=== PATIENT | male | born 2000 | race Caucasian/White ===

== ENCOUNTER 2019-05-03 09:48 | Emergency (ER) | payer OTHER ==
[~2019-05-03] VITALS: Ht 170.2 cm; Wt 67.9 kg
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
[2019-05-03 11:39] VITALS: BP 117/67
[2019-05-03] MEDS ORDERED: ACETAMINOPHEN 325 MG TAB PO ONE (11:45)
== END 2019-05-03 11:42 | disposition home or self-care (01) ==
LOC: M ED 09:48
DX: S00.33XA Contusion of nose, initial encounter (principal); Y92.9 Unspecified place or not applicable; Y93.9 Activity, unspecified; Y99.1 Military activity; W21.09XA Struck by other hit or thrown ball, initial encounter

== ENCOUNTER 2020-05-29 13:39 | Emergency (ER) | payer OTHER ==
[~2020-05-29] VITALS: Ht 170.2 cm; Wt 75.1 kg
[2020-05-29 15:15] VITALS: BP 130/74
== END 2020-05-29 15:16 | disposition home or self-care (01) ==
LOC: M ED 13:39
DX: S30.1XXA Contusion of abdominal wall, initial encounter (principal); V49.50XA Passenger injured in collision with unspecified motor vehicles in traffic accident, initial encounter; Y92.410 Unspecified street and highway as the place of occurrence of the external cause; F17.229 Nicotine dependence, chewing tobacco, with unspecified nicotine-induced disorders

== ENCOUNTER 2020-05-29 20:38 | Emergency (ER) | payer OTHER ==
[~2020-05-29] VITALS: Ht 170.2 cm; Wt 74.0 kg
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
[2020-05-29 22:57] VITALS: BP 128/65
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
== END 2020-05-29 22:59 | disposition home or self-care (01) ==
LOC: M ED 20:38
DX: S16.1XXA Strain of muscle, fascia and tendon at neck level, initial encounter (principal); V43.62XA Car passenger injured in collision with other type car in traffic accident, initial encounter; Y92.410 Unspecified street and highway as the place of occurrence of the external cause; M50.20 Other cervical disc displacement, unspecified cervical region